=== PATIENT | male | born 1990 | race African-American/Black ===

== ENCOUNTER 2017-01-31 14:07 | Emergency (ER) | payer OTHER ==
[~2017-01-31] VITALS: Ht 170.2 cm; Wt 68.0 kg
[2017-01-31 14:37] VITALS: BP 148/103
== END 2017-01-31 15:25 | disposition home or self-care (01) ==
LOC: ER 14:16
DX: N39.0 Urinary tract infection, site not specified (principal)
CPT/HCPCS: 81002